=== PATIENT | male | born 2000 | race Caucasian/White ===

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

== ENCOUNTER → 2023-03-17 | Outpatient (CLI) | payer BC ==
[2023-03-17 10:10] LABS: BETA-HCG, QUANT < 3.0 mIU/mL (<1); LDH 116 U/L (120-246)
== END | disposition home or self-care (01) ==
LOC: US 08:30 → LAB 08:44
PROVIDERS: ATTEND Urology
DX: N43.3 Hydrocele, unspecified (principal)

== ENCOUNTER → 2023-05-08 | Outpatient (CLI) | payer BC | END | disposition home or self-care (01) | LOC: US 01:50 | PROVIDERS: ATTEND Urology | DX: N28.89 Other specified disorders of kidney and ureter (principal) ==

== ENCOUNTER → 2024-05-27 | Outpatient (CLI) | payer BC ==
[2024-05-27 14:51] LABS: TOTAL PROTEIN 7.6 gm/dL (6.0-8.0)
== END ==
LOC: LAB 13:52
PROVIDERS: ATTEND Podiatrist
DX: B35.1 Tinea unguium (principal)

== ENCOUNTER 2024-10-04 02:02 | Emergency (ER) | payer BC ==
[~2024-10-04] VITALS: Ht 175.2 cm; Wt 63.2 kg
[2024-10-04] MEDS ORDERED: MELOXICAM15 MG PO (03:34)
== END 2024-10-04 03:36 | disposition home or self-care (01) ==
LOC: ED 02:02
DX: M79.672 Pain in left foot (principal)

== ENCOUNTER 2025-10-10 02:39 | Emergency (ER) | payer BC ==
[~2025-10-10] VITALS: Ht 170.1 cm; Wt 66.3 kg
[~2025-10-10 02:39] MED LIST: MELOXICAM15 MG PO
[2025-10-10] MEDS ORDERED: SODIUM CHLORIDE 0.9% 1,000 ML IV ONE ×3 (03:15→06:35)
[2025-10-10] MEDS ORDERED: Metoclopramide Hydrochloride 10 MG/2 ML VIAL IV ONE (03:15)
[2025-10-10] MEDS ORDERED: Ondansetron Hydrochloride 4 MG/2 ML VIAL IV ONE (03:20)
[2025-10-10 03:29] LABS: BASO # 0.1 10*3/uL (0.0-0.1); BASO % 0.7 % (0.0-1.0); EOS # 0.1 10*3/uL (0.0-0.4); EOS % 0.7 % (1.0-4.0); MEAN CELL VOLUME 87.7 fl (80.0-94.0); MEAN CORPUSCULAR HGB 28.8 pg (27.0-31.0); MEAN PLATELET VOLUME 9.0 fl (9.6-12.3); MONO # 0.6 10*3/uL (0.1-1.0); MONO % 6.7 % (3.0-9.0); NEUT # 4.5 10*3/uL (2.3-7.9); NEUT % 53.4 % (47.0-73.0); NUCLEATED RED BLOOD CELL 0.0 % (0.0-0.0); NUCLEATED RED BLOOD CELL 0.0 10*3/uL (0.0-0.0); PLATELET COUNT AUTOMATED 263 10*3/uL (130-400); RED CELL DISTRI WIDTH 12.9 % (0-14.5)
[2025-10-10 03:36] LABS: BILIRUBIN Negative (Negative); BLOOD Negative (Negative); CLARITY Clear (Clear); COLOR Yellow (Yellow); KETONE Negative (Negative); LEUKO ESTERASE Negative (Negative); NITRITE Negative (Negative); PH 6.5 (4.5-8.0); SPECIFIC GRAVITY 1.010 (1.001-1.030); UROBILINOGEN 0.2 E.U./dl (0.0-1.0)
[2025-10-10 03:43] LABS: URINE AMPHETAMINES Negative (1000ng/ml); URINE BARBITURATES Negative (200ng/ml); URINE BENZODIAZEPINES Negative (200ng/ml); URINE CANNABINOIDS (THC) Negative (50ng/ml); URINE COCAINE Negative (300ng/ml); URINE METHADONE Negative (300ng/ml); URINE OPIATES Negative (300ng/ml); URINE PHENCYCLIDINE Negative (25ng/ml)
[2025-10-10 03:55] LABS: WBC 0-2 wbc/hpf (0-5)
[2025-10-10 04:04] LABS: BUN 13 mg/dl (9-23); ETHYL ALCOHOL 278.3 mg/dl (<3); SGPT/ALT 10 U/L (5-49)
== END 2025-10-10 10:19 | disposition home or self-care (01) ==
LOC: ED 02:39
PROVIDERS: Emergency Medicine
DX: F10.129 Alcohol abuse with intoxication, unspecified (principal); R11.10 Vomiting, unspecified; Y90.9 Presence of alcohol in blood, level not specified